=== PATIENT | male | born 1965 | race Caucasian/White ===

== ENCOUNTER 2016-12-18 13:30 | Outpatient (RCR) | payer OTHER, MEDICAID | END 2017-01-16 | disposition home or self-care (01) | LOC: PTY 13:30 | DX: M54.12 Radiculopathy, cervical region (principal); M25.552 Pain in left hip; R20.0 Anesthesia of skin ==

== ENCOUNTER 2017-01-17 10:50 | Outpatient (RCR) | payer OTHER, MEDICAID | END 2017-02-15 | disposition home or self-care (01) | LOC: PTY 10:50 | DX: M43.16 Spondylolisthesis, lumbar region (principal); R42 Dizziness and giddiness | CPT/HCPCS: 97110; 97140; G0283 ==